=== PATIENT | female | born 1955 | race Caucasian/White ===

== ENCOUNTER → 2017-09-24 | Day surgery (SDC) | payer BC ==
[~2017-09-24] MED LIST: ACETAMINOPHEN 1000 MG/100 ML 100 ML IV ONE; APREPITANT 40 MG CAP ONE; CEPH500C3 PO; ISOSULFAN BLUE 50 MG/5 ML VIAL SQ ONE; LACTATED RINGER'S 1000 ML INJ 1,000 ML ONE; LIDOCAINE 1%/EPINEPHrine 1:100,000 SOLN 50 ML VIAL ONE; MIDAZOLAM HCL 2 MG/2 ML VIAL ONE; SCOPOLAMINE 1.5 MG PATCH ONE; TAB-TAB PO; VANCOMYCIN HCL 1000 MG VIAL ONE; ceFAZolin INJ 1,000 MG VIAL ONE
--- NOTE | 2017-09-26 09:57 | MP ---
cc: Sai Man MD,Boris Serrano MD DATE OF OPERATION: 09/24/2017 PROCEDURE: 1. Excision sentinel lymph nodes right axilla x 5, non-sentinel lymph nodes right axilla x 2. 2. Needle localized wide local excision right breast with a lumpectomy. PREOPERATIVE DIAGNOSIS: Invasive ductal carcinoma right breast. POSTOPERATIVE DIAGNOSIS: Invasive ductal carcinoma right breast. ANESTHESIA: LMA. SURGEON: Sai Man MD HEAD OF HUMAN RESOURCES: ERNA Jones ESTIMATED BLOOD LOSS: 30 mL. COMPLICATIONS: None. DRAINS: None. SPECIMEN: [place] lymph nodes right axilla x 5, non-sentinel lymph nodes right axilla x 2, right breast needle localized wide local excision with additional lateral margin to pathology. PROCEDURE IN DETAIL: The patient was taken to the department of nuclear medicine where she underwent injection with technetium-99 sulfur colloid. The patient also underwent needle localization procedure in the department of radiology. She was taken back down to the nuclear medicine department for imaging where a lymphoscintigraphy demonstrated lymph nodes in the axilla. These were marked by the radiologist. No other activity was noted except in the axilla and the primary injection site. At this point, the patient was seen in the holding area, marked by the undersigned and confirmed by the patient. She was then taken to the operating room and placed on the operating room table in the supine position. Laryngeal mask anesthesia was instituted. The right breast and axilla were prepped and draped in the field. Time-out was taken confirming the correct patient, site and procedure to be performed. The nurse practitioner was present throughout the entirety of the procedure. Her presence was required for retraction, exposure and resection of important structures. She provided assistance while the surgical resident passed instruments to the operative field. Attention was turned to the axilla first. Injection was made with local anesthetic and dissection carried down into the axilla between the yeh the radiologist had provided. Utilizing the navigator probe, activity was noted above background. The lymph nodes were removed and a total of 5 sentinel nodes were removed until no activity above background was noted. Together with the sentinel nodes, 2 very small non-sentinel nodes were adjacent to the sentinel nodes and these had been excised with the specimens. The 2 non-sentinel nodes and a small amount of adjacent axillary tissue was submitted separately. The 5 sentinel nodes, all with activity above background, were submitted together. The axilla was examined and with hemostasis assured, the wound was closed in 2 layers with interrupted 3-0 Vicryl suture and 5-0 PDS in a running subcuticular fashion. This was toweled off and attention turned to the breast. Skin and subcutaneous tissue had previously been infiltrated and at this point, a circumareolar incision was made from approximately the 7 o'clock to the 10 o'clock position on the breast. Dissection was carried out laterally to the needle which was cut at the skin and brought into the wound. A very generous excision was then performed with a relative sphere of tissue removed around the needle. Dissection was carried down to the muscle. The specimen was oriented with silk sutures and passed off the table. The nipple was slightly retracted and care was taken to excise tissue close to the nipple dermis. This was marked with silk suture so that the margin could be assessed. After passing the specimen off the table, the wound was made hemostatic with electrocautery. An additional lateral margin was taken as this tissue appeared somewhat more suspicious than the surrounding tissue. This was marked with a silk suture as well. With hemostasis assured, the remaining local anesthetic was injected into the wound and the wound closed in 2 layers with interrupted 3-0 Vicryl suture and 5-0 PDS in a running subcuticular fashion. The wound was dressed with Steri-Strips as well as the axilla. The patient was extubated and taken back to the recovery room in stable condition. She tolerated the procedure well. MD ZEYNEP Urias/DEANNA , 09:15 AM , 09:55 AM
== END | disposition home or self-care (01) ==
LOC: ESDC 08:10
PROVIDERS: ATTEND Surgery Trauma Surgery
DX: C50.911 Malignant neoplasm of unspecified site of right female breast (principal)
CPT/HCPCS: 00400; 01610; 19125; 38525; 88307; J0131; J0690; J2250; J3010; J3370; J7120; J8501; Q9968